=== PATIENT | male | born 1975 | race African-American/Black ===

== ENCOUNTER 2018-03-19 15:17 | Emergency (ER) | payer OTHER ==
[~2018-03-19] VITALS: Ht 182.9 cm; Wt 89.1 kg
[~2018-03-19 15:17] MED LIST: ADV100 IH; ALBU8HFA IH; FLUT1AER IH; METH10 PO
[2018-03-19] MEDS ORDERED: CALCIUM GLUCONATE 100 MG/ML 10 ML IVP ONE (15:19)
[2018-03-19] MEDS ORDERED: DEXTROSE 50%-WATER 25 GM/50 ML SYRINGE IVP ONE (15:19)
[2018-03-19] MEDS ORDERED: SODIUM BICARBONATE [ADULT] 8.4% 50 MEQ/50 ML SYRINGE IVP ONE (15:19)
[2018-03-19] MEDS ORDERED: ATROPINE SULFATE 0.1 MG/ML 10 ML SYRINGE IVP ONE (15:19)
[2018-03-19] MEDS ORDERED: EPINEPHrine 1:10,000 [1 MG/10 ML] SYRINGE IVP ONE (15:19)
[2018-03-19] MEDS ORDERED: CALCIUM CHLORIDE 100 MG/ML 10 ML SYRINGE IVP ONE (15:19)
[2018-03-19] MEDS ORDERED: DOPamine HCL/D5W 400 MG/250 ML IV BAG IV ONE (15:19)
[2018-03-19] MEDS ORDERED: PANTOPRAZOLE SODIUM 40 MG/VIAL IVP ONE (15:30)
[2018-03-19] MEDS ORDERED: OCTREOTIDE ACETATE 100 MCG/ML VIAL IVP ONE (15:30)
[2018-03-19] MEDS ORDERED: TRANEXAMIC ACID 1,000 MG in DEXTROSE 5%-WATER 50 ML IV ONE (15:45)
[2018-03-19] MEDS ORDERED: PHENYLEPHRINE 200 MG/D5%-WATER 250 ML IV PRN (15:45)
[2018-03-19 15:46] VITALS: BP 85/54
== END 2018-03-19 19:00 | disposition expired ==
LOC: EDBD 15:18 → EMS 15:18
DX: I46.9 Cardiac arrest, cause unspecified (principal); J45.909 Unspecified asthma, uncomplicated; N18.6 End stage renal disease; F17.210 Nicotine dependence, cigarettes, uncomplicated; F19.90 Other psychoactive substance use, unspecified, uncomplicated; F11.90 Opioid use, unspecified, uncomplicated; Z99.2 Dependence on renal dialysis
CPT/HCPCS: 31500; 51702; 92950; 92960; 93005; 99291; J0171; J0461; J0610; J1265; J2354; J2370; J3490 ×3; J7060